=== PATIENT | female | born 1960 | race Two or more races ===

== ENCOUNTER → 2025-08-05 | Outpatient (CLI) | payer MEDICARE, SELFPAY ==
--- NOTE | 2025-08-05 07:30 | XR_ITS ---
Examination: Breast ultrasound complete, bilateral Date and time of exam: August 05, 2025, 0723 hours, comparison January 10, 2024 INDICATIONS: HD stereotactic biopsy December 21, 2022, negative, right breast needle localization lumpectomy December 26, 2012, clinical diagnosis fibrocystic breast disease Technique: Real-time grayscale ultrasonographic imaging bilateral breasts, including all 4 quadrants as well as nipple retroareolar and axillary regions. Findings: Sonographic images right and left breast demonstrate no cystic or solid masses IMPRESSION: BI-RADS Category 1: Negative studies
--- NOTE | 2025-08-05 08:30 | XR_ITS ---
Examination: Screening digital mammography, bilateral Computer aided detection 3-D breast Tomosynthesis, bilateral Date and time of exam: Tenderness August 05, 2025, 0733 hours, compared to mammograms dating to August 19, 2019 Indication: Screening Technique: Nonmagnified MLO, CC views of the breasts to been obtained, reconstructed from 3-D Tomosynthesis images. R2 computer aided detection program utilized for evaluation of suspicious masses and/or abnormal calcifications. 3-D Tomosynthesis images obtained. Findings: Scattered areas of fibroglandular density. Stable scar formation upper right breast Benign calcifications Outer left breast marker No interval suspicious masses Impression: BI-RADS category II: Benign Findings. Recommend 1 year follow-up mammogram.
== END | disposition home or self-care (01) ==
LOC: CDIM 06:58
PROVIDERS: Referring Provider Physician Assistant Medical; Visit Provider Physician Assistant Medical
DX: Z12.31 Encounter for screening mammogram for malignant neoplasm of breast (principal); R92.323 Mammographic fibroglandular density, bilateral breasts; R92.1 Mammographic calcification found on diagnostic imaging of breast
CPT/HCPCS: 76641; 77063; 77067